=== PATIENT | female | born 1950 | race African-American/Black ===

== ENCOUNTER 2018-03-19 15:44 | Inpatient (IN) | payer MEDICARE, OTHER ==
[~2018-03-19] VITALS: Ht 163.8 cm; Wt 54.9 kg
--- NOTE | ~2018-03-19 | RHP ---
PATIENT: LOUISE MONROE MEDICAL RECORD: [id number] ACCOUNT: [id number] LOCATION:[id number] : 52 ADMISSION DATE: 03/19/18 REHABILITATION HISTORY AND PHYSICAL EXAMINATION POST ADMISSION PHYSICIAN EXAMINATION POST-ADMISSION PHYSICAL EXAMINATION AND HISTORY AND PHYSICAL DATE OF ADMISSION: 03/19/2018 ADMITTING DIAGNOSIS: CVA. 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 She developed aphasia and right-sided weakness. She presented to the ED and was given TPA. 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 MRI of the brain on 03/15 revealed nonhemorrhagic areas of ischemia in the left middle cerebral artery distribution involving the left middle frontal and posterior temporal lobes. Old tiny lacunar infarcts were noted in the right cerebellum and right thalamus. She was admitted to Dr. Wyman. She underwent emergent thrombectomy on 03/14. The patient underwent revascularization and this was achieved with limited ischemic infarction of the left frontal operculum. She was admitted to neuro ICU at [facility] on 03/15 and was transferred to the neuro floor on 03/17. Initial speech therapy evaluation revealed dysphagia, and the patient was placed n.p.o. and placed on a Dobbhoff tube for nutrition. The patient now tolerating p.o. diet. On 03/17, she developed AFib, was placed in the CCU for monitoring. She has been reported to have an elevated troponin. Dr. Watts in cardiology was consulted. She is now on p.o. amiodarone. He stated that he did not see a reason for elevated troponin per clinical course and recommended the patient okay to go to rehab. She remains with dense right hemiparesis and global aphasia. Vitals are stable. She is noted to be in normal sinus rhythm on the monitor. They have requested inpatient rehab before discharge home for safety risk and risk of readmission. Comorbidities in this patient include right-sided hemiparesis, previous small lacunar infarcts in the right cerebellum and right thalamus, aphasia, and hypertension. PAST MEDICAL HISTORY: Significant for hypertension. PAST SURGICAL HISTORY: None. ALLERGIES: LISINOPRIL, NITROGLYCERIN, PROCARDIA, LASIX, AND BENICAR. CURRENT MEDICATIONS: Include Mag-Ox 400 mg daily, folic acid 1 mg daily, amlodipine 2.5 mg daily, Cozaar 100 mg daily, Bumex 0.5 mg daily, Tylenol 1000 mg every 6 hours p.r.n., spironolactone 25 mg b.i.d., atorvastatin 80 mg at bedtime, Eliquis 5 mg b.i.d., and amiodarone 200 mg b.i.d. HABITS: No current alcohol or tobacco use. FAMILY HISTORY: Noncontributory. SOCIAL HISTORY: The patient hopes to return back home and get back to her prior level of functioning. HISTORY AND PHYSICAL [id number] LOUISE MONROE REVIEW OF SYSTEMS: GENERAL: The patient is having some difficulty with dysphagia at this time and problems with aphasia. PHYSICAL EXAMINATION: VITAL SIGNS: Stable. She is afebrile. GENERAL: A thin female, in no acute distress upon exam. HEENT: Normocephalic and atraumatic. Mucosa moist. NECK: Supple. No lymphadenopathy. LUNGS: Clear at this time. HEART: Irregular rate and rhythm. ABDOMEN: Benign. EXTREMITIES: No clubbing, cyanosis or edema. NEUROLOGIC: Consistent with right hemiparesis and noted aphasia. LABORATORY DATA: Her white count is 5.4, H&H of 11.4 and 34.9, her MCV is increased at 101.2, her platelet count is 274. Her sodium is 137, potassium 4.4, BUN and creatinine of 20 and 1.2, and blood sugar is noted to be 88. ASSESSMENT: This 67-year-old female patient admitted with a diagnosis of CVA in the left middle cerebral artery area. The patient has potential to make improvement. We will institute the following multidisciplinary therapies including, but not limited to physical, occupational, respiratory, speech, nutritional services, prosthetics and orthotics. Given her complex medical condition and risks for more complications, rehabilitation services cannot be provided at a low level of care such as a fpc facility. PLAN: 1. Admit to [facility] for intensive inpatient therapy to include the following disciplines: A. Physical therapy to improve gait, all transfer skills and bed mobility to a modified independent level. B. Occupational therapy to improve activities of daily living to a modified independent level. C. Case management to assist with discharge planning and placement options. D. Nutrition to assist with nutritional needs. E. Rehabilitation nursing to assist in monitoring the patient's underlying medical conditions and to assist with any type of bowel or bladder habits. 2. The patient's current medications and medical care will be continued. 3. The patient will be placed on standard fall precautions. 4. The patient's estimated length of stay is approximately 7-10 days. 5. We will discuss this patient during care team staff meeting this week. TRANSINT:[id number] Voice Confirmation ID: [id number] DOCUMENT ID: [id number] FIORDALIZA notes whether there has been none or any medical/functional change since admission: - NO CHANGE SINCE PRESCREEN. FIORDALIZA attests patient continues to be appropriate for IRF: - CONTINUES TO BE APPROPRIATE. HISTORY AND PHYSICAL [id number] LOUISE MONROE SCOTT MD at 2041 CC: [id number] DICTATION DATE: 03/20/1824 LANGUAGE SPECIALIST: 03/20/18 1001 ADM IN [place] [id number] [place] [id number]
[~2018-03-19 15:44] MED LIST: ASPIRIN325 MG PO; AVAPRO150 MG PO; B-12 DOTS500 MCG; BABY ASPIRIN81 MG PO; BAYER CHEWABLE81 MG PO; BUMEX 1 MG TAB1 MG PO; BUMEX2 MG PO; CELLCEPT500 MG PO; FOLIC ACID1 MG PO; K-DUR20 MEQ PO; LOPRESSOR50 MG PO; MAG-OXIDE400 MG PO; METOPROLOL TAR100 M1 PO; METOPROLOL TAR100 MG PO; MICRO-K10 MEQ PO; NORCO 10/325 TA1 TA1; NORCO 10/325 TA1 TA1 PO; PEPCID40 MG PO; PREDNISONE20 MG PO; PREVACID30 MG PO; PRINIVIL20 MG PO
[2018-03-19] MEDS ORDERED: PACERONE200 MG PO (16:38)
[2018-03-19] MEDS ORDERED: LIPITOR80 MG PO (16:38)
[2018-03-19] MEDS ORDERED: ELIQUIS5 MG PO (16:38)
[2018-03-19] MEDS ORDERED: COZAAR100 MG PO (16:39)
[2018-03-19] MEDS ORDERED: NORVASC2.5 MG PO (16:40)
[2018-03-19] MEDS ORDERED: ALDACTONE25 MG PO (16:40)
[2018-03-19 17:06] VITALS: BP 145/71; BMI 20.4
[2018-03-19 19:54] VITALS: BP 136/73
[2018-03-20 07:51] LABS: BASOPHILS 0.6 % (0-2); EOSINOPHILS 1.9 % (0-7); HEMATOCRIT 34.9 % (36.0-48.0); HEMOGLOBIN 11.4 g/dL (12-16); IMMATURE GRANULOCYTES 1.9 % (0-5); LYMPHOCYTES 22.9 % (15-50); MCHC 32.7 g/dL (31.0-37.0); MCV 101.2 fL (80.0-100.0); MEAN PLATELET VOLUME 9.3 fL (7.4-10.4); MONOCYTES 17.9 % (2-11); NEUTROPHILS 54.8 % (40-80); PLATELET COUNT 274 10x3/uL (130-400); RBC 3.45 10x6/uL (4.00-5.40); RDW 16.6 % (11.5-14.5); WBC 5.4 10x3/uL (4.8-10.8)
[2018-03-20 07:54] VITALS: BP 110/68
[2018-03-20 08:14] LABS: ANION GAP 13.6 mmol/L (8-16); CALCIUM 8.6 mg/dL (8.5-10.1); CARBON DIOXIDE 24.8 mmol/L (21.0-32.0); CREATININE - SERUM 1.2 mg/dL (0.6-1.3); POTASSIUM - SERUM 4.4 mmol/L (3.5-5.1)
[2018-03-20 10:12] VITALS: Ht 163.8 cm; Wt 54.9 kg
[2018-03-20 20:01] VITALS: BP 115/59
[2018-03-21 13:23] VITALS: BP 117/62
[2018-03-21 19:55] VITALS: BP 128/60
[2018-03-22 06:05] LABS: BASOPHILS 0.8 % (0-2); EOSINOPHILS 1.7 % (0-7); HEMATOCRIT 34.6 % (36.0-48.0); HEMOGLOBIN 11.1 g/dL (12-16); IMMATURE GRANULOCYTES 1.5 % (0-5); LYMPHOCYTES 28.3 % (15-50); MCH 32.5 pg (26.0-34.0); MCHC 32.1 g/dL (31.0-37.0); MCV 101.2 fL (80.0-100.0); MEAN PLATELET VOLUME 9.6 fL (7.4-10.4); MONOCYTES 17.4 % (2-11); NEUTROPHILS 50.3 % (40-80); PLATELET COUNT 315 10x3/uL (130-400); RBC 3.42 10x6/uL (4.00-5.40); RDW 16.4 % (11.5-14.5); WBC 6.7 10x3/uL (4.8-10.8)
[2018-03-22 06:14] LABS: ANION GAP 15.7 mmol/L (8-16); CALCIUM 8.8 mg/dL (8.5-10.1); CARBON DIOXIDE 23.2 mmol/L (21.0-32.0); CREATININE - SERUM 1.3 mg/dL (0.6-1.3); POTASSIUM - SERUM 4.9 mmol/L (3.5-5.1)
[2018-03-22 08:00] VITALS: BP 109/60
[2018-03-22 19:00] VITALS: BP 107/61
[2018-03-23 08:00] VITALS: BP 109/54
[2018-03-23 19:00] VITALS: BP 151/46
[2018-03-24 06:52] LABS: BASOPHILS 0.3 % (0-2); EOSINOPHILS 1.3 % (0-7); HEMATOCRIT 30.1 % (36.0-48.0); HEMOGLOBIN 9.7 g/dL (12-16); IMMATURE GRANULOCYTES 1.5 % (0-5); LYMPHOCYTES 25.6 % (15-50); MCH 32.2 pg (26.0-34.0); MCHC 32.2 g/dL (31.0-37.0); MEAN PLATELET VOLUME 9.9 fL (7.4-10.4); MONOCYTES 18.5 % (2-11); NEUTROPHILS 52.8 % (40-80); PLATELET COUNT 351 10x3/uL (130-400); RBC 3.01 10x6/uL (4.00-5.40); RDW 16.3 % (11.5-14.5); WBC 6.8 10x3/uL (4.8-10.8)
[2018-03-24 06:57] LABS: ANION GAP 9.6 mmol/L (8-16); CALCIUM 9.5 mg/dL (8.5-10.1); CARBON DIOXIDE 29.3 mmol/L (21.0-32.0); CREATININE - SERUM 1.3 mg/dL (0.6-1.3); POTASSIUM - SERUM 4.9 mmol/L (3.5-5.1)
[2018-03-24 08:00] VITALS: BP 115/56
[2018-03-24 19:00] VITALS: BP 132/59
[2018-03-25 08:15] VITALS: BP 108/51
[2018-03-25 19:58] VITALS: BP 122/68
[2018-03-26 06:40] LABS: HEMATOCRIT 30.6 % (36.0-48.0); HEMOGLOBIN 10.2 g/dL (12-16); LYMPHOCYTES 34.7 % (15-50); MCHC 33.3 g/dL (31.0-37.0); MEAN PLATELET VOLUME 9.5 fL (7.4-10.4); NEUTROPHILS 45.4 % (40-80); PLATELET COUNT 351 10x3/uL (130-400); RBC 3.09 10x6/uL (4.00-5.40); RDW 16.6 % (11.5-14.5)
[2018-03-26 06:45] LABS: ANION GAP 9.3 mmol/L (8-16); CALCIUM 9.5 mg/dL (8.5-10.1); CARBON DIOXIDE 26.3 mmol/L (21.0-32.0); POTASSIUM - SERUM 5.6 mmol/L (3.5-5.1)
[2018-03-26 06:54] LABS: CREATININE - SERUM 1.7 mg/dL (0.6-1.3)
[2018-03-26 14:50] LABS: CKMB 1.5 U/L (0.0-3.6); CREATINE KINASE 67 UL (21-215)
[2018-03-26 19:00] VITALS: BP 120/67
[2018-03-26 20:30] LABS: CKMB 1.7 U/L (0.0-3.6); CREATINE KINASE 65 UL (21-215)
[2018-03-26 20:42] LABS: TROPONIN-I 0.169 ng/mL (0.000-0.060)
[2018-03-27 02:46] LABS: CALC OSMOLALITY 278 mosm/kg (275-300); CALCIUM 9.2 mg/dL (8.5-10.1); CHLORIDE - SERUM 98 mmol/L (98-107); CKMB 2.4 U/L (0.0-3.6); CREATINE KINASE 66 UL (21-215); CREATININE - SERUM 1.6 mg/dL (0.6-1.3); GLUCOSE 89 mg/dL (74-106); POTASSIUM - SERUM 4.9 mmol/L (3.5-5.1); SODIUM 129 mmol/L (136-145); UREA NITROGEN 70 mg/dL (7-18); eGFR NON AFRICAN AMERICAN 34 mL/min (90-120)
[2018-03-27 02:49] LABS: TROPONIN-I 0.192 ng/mL (0.000-0.060)
[2018-03-27 09:14] VITALS: BP 102/59
[2018-03-27 20:30] VITALS: BP 103/55
[2018-03-28 08:45] VITALS: BP 98/58
[2018-03-28 19:55] VITALS: BP 111/66
[2018-03-29] VITALS (8 sets, daily range): BP systolic 91–119; BP diastolic 50–63
[2018-03-29 06:30] LABS: BASOPHILS 0.5 % (0-2); EOSINOPHILS 0.8 % (0-7); HEMATOCRIT 22.8 % (36.0-48.0); IMMATURE GRANULOCYTES 1.3 % (0-5); LYMPHOCYTES 34.6 % (15-50); MCH 31.6 pg (26.0-34.0); MCHC 31.6 g/dL (31.0-37.0); MEAN PLATELET VOLUME 9.5 fL (7.4-10.4); MONOCYTES 10.9 % (2-11); NEUTROPHILS 51.9 % (40-80); PLATELET COUNT 338 10x3/uL (130-400); RBC 2.28 10x6/uL (4.00-5.40); RDW 16.3 % (11.5-14.5); WBC 8.4 10x3/uL (4.8-10.8)
[2018-03-29 06:35] LABS: HEMOGLOBIN 7.2 g/dL (12-16)
[2018-03-29 07:10] LABS: ANION GAP 14.5 mmol/L (8-16); CALCIUM 9.1 mg/dL (8.5-10.1); CARBON DIOXIDE 25.6 mmol/L (21.0-32.0); CREATININE - SERUM 1.8 mg/dL (0.6-1.3); POTASSIUM - SERUM 5.1 mmol/L (3.5-5.1)
[2018-03-30 08:00] VITALS: BP 113/60
[2018-03-30 20:00] VITALS: BP 115/59
[2018-03-31 06:59] LABS: BASOPHILS 0.5 % (0-2); EOSINOPHILS 1.3 % (0-7); HEMATOCRIT 27.1 % (36.0-48.0); IMMATURE GRANULOCYTES 1.4 % (0-5); LYMPHOCYTES 21.9 % (15-50); MCH 30.3 pg (26.0-34.0); MCHC 32.8 g/dL (31.0-37.0); MEAN PLATELET VOLUME 9.6 fL (7.4-10.4); MONOCYTES 10.8 % (2-11); NEUTROPHILS 64.1 % (40-80); RDW 18.2 % (11.5-14.5); WBC 8.6 10x3/uL (4.8-10.8)
[2018-03-31 07:04] LABS: HEMOGLOBIN 8.9 g/dL (12-16); MCV 92.2 fL (80.0-100.0); PLATELET COUNT 264 10x3/uL (130-400); RBC 2.94 10x6/uL (4.00-5.40)
[2018-03-31 07:25] LABS: ANION GAP 8.8 mmol/L (8-16); CALCIUM 9.1 mg/dL (8.5-10.1); CARBON DIOXIDE 28.4 mmol/L (21.0-32.0); CREATININE - SERUM 1.7 mg/dL (0.6-1.3); POTASSIUM - SERUM 5.2 mmol/L (3.5-5.1)
[2018-03-31 08:00] VITALS: BP 106/55
[2018-03-31 19:00] VITALS: BP 124/61
[2018-04-01 08:00] VITALS: BP 107/57
[2018-04-01 19:00] VITALS: BP 137/55
[2018-04-02 05:13] LABS: BASOPHILS 0.4 % (0-2); EOSINOPHILS 2.6 % (0-7); HEMOGLOBIN 8.3 g/dL (12-16); IMMATURE GRANULOCYTES 1.1 % (0-5); LYMPHOCYTES 28.6 % (15-50); MCH 30.4 pg (26.0-34.0); MCHC 31.9 g/dL (31.0-37.0); MEAN PLATELET VOLUME 9.4 fL (7.4-10.4); MONOCYTES 16.7 % (2-11); NEUTROPHILS 50.6 % (40-80); PLATELET COUNT 276 10x3/uL (130-400); RBC 2.73 10x6/uL (4.00-5.40); RDW 17.8 % (11.5-14.5); WBC 7.2 10x3/uL (4.8-10.8)
[2018-04-02 05:20] LABS: MCV 95.2 fL (80.0-100.0)
[2018-04-02 05:30] LABS: ANION GAP 9.9 mmol/L (8-16); CALCIUM 8.5 mg/dL (8.5-10.1); CARBON DIOXIDE 28.8 mmol/L (21.0-32.0); CREATININE - SERUM 2.1 mg/dL (0.6-1.3); POTASSIUM - SERUM 5.7 mmol/L (3.5-5.1)
[2018-04-02 08:00] VITALS: BP 113/60
[2018-04-02] MEDS ORDERED: ELIQUIS2.5 MG PO (09:02)
== END 2018-04-02 11:07 | disposition home health service (06) | DRG 57 ==
LOC: D.REHAB 15:44
PROVIDERS: Emergency Medicine
DX: I69.30 Unspecified sequelae of cerebral infarction (principal); G81.91 Hemiplegia, unspecified affecting right dominant side; R47.01 Aphasia; I10 Essential (primary) hypertension; I48.91 Unspecified atrial fibrillation; I35.0 Nonrheumatic aortic (valve) stenosis

== ENCOUNTER → 2018-04-28 13:03 | Outpatient (CLI) | payer MEDICARE, OTHER ==
[2018-03-20 10:12] VITALS: BMI 20.4
[~2018-04-28 13:03] MED LIST changes: +ALDACTONE25 MG PO; +COZAAR100 MG PO; +ELIQUIS2.5 MG PO; +ELIQUIS5 MG PO; +LIPITOR80 MG PO; +NORVASC2.5 MG PO; +PACERONE200 MG PO
[2018-04-28 13:56] LABS: BASOPHILS 0.2 % (0-2); EOSINOPHILS 1.1 % (0-7); HEMATOCRIT 35.5 % (36.0-48.0); HEMOGLOBIN 11.2 g/dL (12-16); IMMATURE GRANULOCYTES 0.5 % (0-5); MCH 30.4 pg (26.0-34.0); MCHC 31.5 g/dL (31.0-37.0); MCV 96.2 fL (80.0-100.0); MEAN PLATELET VOLUME 9.8 fL (7.4-10.4); MONOCYTES 10.1 % (2-11); NEUTROPHILS 72.1 % (40-80); RBC 3.69 10x6/uL (4.00-5.40); RDW 19.5 % (11.5-14.5); WBC 11.1 10x3/uL (4.8-10.8)
[2018-04-28 13:58] LABS: PLATELET COUNT 333 10x3/uL (130-400)
== END | disposition home or self-care (01) ==
LOC: D.LABREF 13:03
PROVIDERS: Internal Medicine Hematology & Oncology
DX: D55.0 Anemia due to glucose-6-phosphate dehydrogenase [G6PD] deficiency (principal)

== ENCOUNTER → 2018-05-06 14:35 | Outpatient (CLI) | payer MEDICARE, OTHER ==
[2018-03-20 10:12] VITALS: BMI 20.4
[2018-05-06 16:35] LABS: BASOPHILS 0.3 % (0-2); EOSINOPHILS 0.4 % (0-7); HEMATOCRIT 39.5 % (36.0-48.0); HEMOGLOBIN 12.3 g/dL (12-16); IMMATURE GRANULOCYTES 1.2 % (0-5); LYMPHOCYTES 13.5 % (15-50); MCH 30.5 pg (26.0-34.0); MCHC 31.1 g/dL (31.0-37.0); MEAN PLATELET VOLUME 10.1 fL (7.4-10.4); MONOCYTES 10.3 % (2-11); NEUTROPHILS 74.3 % (40-80); RBC 4.03 10x6/uL (4.00-5.40); WBC 7.8 10x3/uL (4.8-10.8)
[2018-05-06 16:38] LABS: PLATELET COUNT 260 10x3/uL (130-400)
== END | disposition home or self-care (01) ==
LOC: D.LABREF 14:35
PROVIDERS: Internal Medicine Hematology & Oncology
DX: D55.0 Anemia due to glucose-6-phosphate dehydrogenase [G6PD] deficiency (principal)

== ENCOUNTER → 2018-05-13 20:36 | Outpatient (CLI) | payer MEDICARE, OTHER ==
[2018-03-20 10:12] VITALS: BMI 20.4
[2018-05-13 21:51] LABS: BASOPHILS 0.3 % (0-2); EOSINOPHILS 0.6 % (0-7); HEMATOCRIT 38.9 % (36.0-48.0); HEMOGLOBIN 12.3 g/dL (12-16); IMMATURE GRANULOCYTES 0.8 % (0-5); LYMPHOCYTES 13.4 % (15-50); MCHC 31.6 g/dL (31.0-37.0); MEAN PLATELET VOLUME 10.3 fL (7.4-10.4); MONOCYTES 7.6 % (2-11); NEUTROPHILS 77.3 % (40-80); PLATELET COUNT 243 10x3/uL (130-400); RBC 3.97 10x6/uL (4.00-5.40); RDW 18.2 % (11.5-14.5); WBC 7.1 10x3/uL (4.8-10.8)
== END | disposition home or self-care (01) ==
LOC: D.LABREF 20:36
PROVIDERS: Internal Medicine Hematology & Oncology
DX: D55.0 Anemia due to glucose-6-phosphate dehydrogenase [G6PD] deficiency (principal)

== ENCOUNTER → 2018-05-27 11:57 | Outpatient (CLI) | payer MEDICARE, OTHER ==
[2018-03-20 10:12] VITALS: BMI 20.4
[2018-05-27 16:18] LABS: BASOPHILS 0.6 % (0-2); HEMATOCRIT 36.9 % (36.0-48.0); HEMOGLOBIN 11.8 g/dL (12-16); IMMATURE GRANULOCYTES 0.4 % (0-5); LYMPHOCYTES 29.9 % (15-50); MCH 30.9 pg (26.0-34.0); MCV 96.6 fL (80.0-100.0); MEAN PLATELET VOLUME 10.5 fL (7.4-10.4); MONOCYTES 16.7 % (2-11); NEUTROPHILS 51.4 % (40-80); PLATELET COUNT 238 10x3/uL (130-400); RBC 3.82 10x6/uL (4.00-5.40); RDW 17.5 % (11.5-14.5)
== END | disposition home or self-care (01) ==
LOC: D.LABREF 11:57
PROVIDERS: Internal Medicine Hematology & Oncology
DX: G81.90 Hemiplegia, unspecified affecting unspecified side (principal); R13.10 Dysphagia, unspecified

== ENCOUNTER → 2018-06-02 18:54 | Outpatient (CLI) | payer MEDICARE, OTHER ==
[2018-03-20 10:12] VITALS: BMI 20.4
[2018-06-02 19:35] LABS: BASOPHILS 0.4 % (0-2); EOSINOPHILS 0.1 % (0-7); HEMATOCRIT 37.7 % (36.0-48.0); HEMOGLOBIN 12.2 g/dL (12-16); IMMATURE GRANULOCYTES 0.4 % (0-5); LYMPHOCYTES 21.1 % (15-50); MCHC 32.4 g/dL (31.0-37.0); MCV 95.9 fL (80.0-100.0); MEAN PLATELET VOLUME 10.7 fL (7.4-10.4); MONOCYTES 7.7 % (2-11); NEUTROPHILS 70.3 % (40-80); PLATELET COUNT 235 10x3/uL (130-400); RBC 3.93 10x6/uL (4.00-5.40); RDW 17.2 % (11.5-14.5); WBC 6.9 10x3/uL (4.8-10.8)
== END | disposition home or self-care (01) ==
LOC: D.LABREF 18:54
PROVIDERS: Internal Medicine Hematology & Oncology
DX: D55.0 Anemia due to glucose-6-phosphate dehydrogenase [G6PD] deficiency (principal)

== ENCOUNTER → 2018-06-23 15:54 | Outpatient (CLI) | payer MEDICARE, OTHER ==
[2018-03-20 10:12] VITALS: BMI 20.4
[2018-06-23 17:24] LABS: BASOPHILS 0.3 % (0-2); EOSINOPHILS 1.3 % (0-7); HEMOGLOBIN 10.2 g/dL (12-16); IMMATURE GRANULOCYTES 1.9 % (0-5); LYMPHOCYTES 11.7 % (15-50); MCH 31.4 pg (26.0-34.0); MCHC 31.9 g/dL (31.0-37.0); MCV 98.5 fL (80.0-100.0); MEAN PLATELET VOLUME 9.8 fL (7.4-10.4); MONOCYTES 8.5 % (2-11); NEUTROPHILS 76.3 % (40-80); RBC 3.25 10x6/uL (4.00-5.40); WBC 9.6 10x3/uL (4.8-10.8)
[2018-06-23 17:25] LABS: PLATELET COUNT 325 10x3/uL (130-400)
== END | disposition home or self-care (01) ==
LOC: D.LABREF 15:54
PROVIDERS: Internal Medicine Hematology & Oncology
DX: I63.9 Cerebral infarction, unspecified (principal); N18.9 Chronic kidney disease, unspecified

== ENCOUNTER 2018-09-27 08:13 | Outpatient (CLI) | payer OTHER ==
[~2018-09-27] VITALS: Ht 163.8 cm; Wt 56.9 kg
[2018-09-27 08:43] LABS: BASOPHILS 0.3 % (0-2); EOSINOPHILS 1.2 % (0-7); HEMATOCRIT 31.5 % (36.0-48.0); IMMATURE GRANULOCYTES 0.9 % (0-5); LYMPHOCYTES 44.4 % (15-50); MCH 32.9 pg (26.0-34.0); MCHC 31.7 g/dL (31.0-37.0); MCV 103.6 fL (80.0-100.0); MEAN PLATELET VOLUME 9.6 fL (7.4-10.4); MONOCYTES 12.6 % (2-11); NEUTROPHILS 40.6 % (40-80); PLATELET COUNT 292 10x3/uL (130-400); RBC 3.04 10x6/uL (4.00-5.40); RDW 15.3 % (11.5-14.5); WBC 6.8 10x3/uL (4.8-10.8)
[2018-09-27 08:50] LABS: APTT 26.5 SECONDS (22.8-39.4); INR 1.07 (0.85-1.17); PROTIME 13.4 SECONDS (11.6-15.0)
[2018-09-27 08:51] LABS: ANION GAP 11.5 mmol/L (8-16); CREATININE - SERUM 2.3 mg/dL (0.6-1.3); POTASSIUM - SERUM 4.5 mmol/L (3.5-5.1)
[2018-09-27] MEDS ORDERED: HYDROCO/APAP TAB 10- PO (09:28)
[2018-09-27] MEDS ORDERED: PREDNISONE10 MG PO (09:29)
[2018-09-27] MEDS ORDERED: PROCRIT/EP40000 UNIT SQ (09:30)
[2018-09-27] MEDS ORDERED: OMEPRAZOLE40 MG PO (09:32)
[2018-09-27 09:40] VITALS: BP 152/66; BMI 22.0
[2018-09-27] MEDS ORDERED: ASPIRIN325 MG PO (09:44)
--- NOTE | 2018-09-27 09:49 | NUR ---
IV STARTED WITH 20G ANTIOCATH IN LEFT HAND, ARIE WELL
--- NOTE | 2018-09-27 14:15 | NUR ---
1355 SEE POST PROCEDURE CHECKLIST FOR VITAL SIGN TRENDS. PT IS LAYING ON LEFT SIDE AND IS TO LAY ON LEFT SIDE FOR 2 MORE HOURS, EXPLAINED TO PT. FAMILY AT SIDE. 1400 WARM BLANKET SUPPLIED, RENAL ADA DIET ORDERED. 1415 ROUNDS BY [facility] NURSE.
--- NOTE | 2018-09-27 15:02 | NUR ---
1455 LAB HERE TO DRAW CBC.
--- NOTE | 2018-09-27 15:07 | NUR ---
1505 INDRA GOODSON APN NOTIFIED OF PT'S TO BE KEEP OVERNIGHT.
[2018-09-27 15:10] LABS: BASOPHILS 0.5 % (0-2); HEMATOCRIT 28.4 % (36.0-48.0); HEMOGLOBIN 8.9 g/dL (12-16); IMMATURE GRANULOCYTES 0.9 % (0-5); LYMPHOCYTES 33.2 % (15-50); MCH 32.7 pg (26.0-34.0); MCHC 31.3 g/dL (31.0-37.0); MCV 104.4 fL (80.0-100.0); MEAN PLATELET VOLUME 9.6 fL (7.4-10.4); NEUTROPHILS 50.4 % (40-80); PLATELET COUNT 240 10x3/uL (130-400); RBC 2.72 10x6/uL (4.00-5.40); RDW 15.2 % (11.5-14.5); WBC 7.9 10x3/uL (4.8-10.8)
--- NOTE | 2018-09-27 18:13 | NUR ---
1745 REPORT PHONED TO MELITA
[2018-09-27 18:57] LABS: BASOPHILS 0.3 % (0-2); EOSINOPHILS 1.4 % (0-7); HEMATOCRIT 28.1 % (36.0-48.0); HEMOGLOBIN 8.9 g/dL (12-16); LYMPHOCYTES 34.2 % (15-50); MCH 33.1 pg (26.0-34.0); MCHC 31.7 g/dL (31.0-37.0); MCV 104.5 fL (80.0-100.0); MEAN PLATELET VOLUME 9.5 fL (7.4-10.4); MONOCYTES 15.2 % (2-11); NEUTROPHILS 47.9 % (40-80); PLATELET COUNT 246 10x3/uL (130-400); RBC 2.69 10x6/uL (4.00-5.40); RDW 15.4 % (11.5-14.5); WBC 6.3 10x3/uL (4.8-10.8)
--- NOTE | 2018-09-27 19:25 | NUR ---
PT RESTING IN BED WITH EYES OPEN. ALERT AND ORIENTED X 3. DENIES ANY PAIN OR DISCOMFORT AT THIS TIME. PT IS VERY FRIENDLY AND TALKATIVE. 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 DRESSING TO RIGHT SIDE FROM RENAL BIOPSY TODAY IS CDI. NO DRAINAGE NOTED. 1 UNIT OF PLATELETS HUNG AT THIS TIME. VSS. NO ADVERSE REACTION NOTED. TELEMETRY UNIT IS ON AND INTACT. SR'S ARE UP X 2 IN BED. CALL LIGHT AND BEDSIDE TABLE ARE WITHIN EASY REACH.
--- NOTE | 2018-09-27 23:41 | NUR ---
PT RESTING IN BED WITH EYES CLOSED. AWOKE EASILY TO VERBAL STIMULI. SHE STATES SHE HAS VOIDED TWICE WITHOUT DIFFICULTY. 500CC CLEAR YELLOW URINE NOTED IN HAT.
[2018-09-28] VITALS: BP 152/55
--- NOTE | 2018-09-28 01:19 | NUR ---
RESTING IN BED WITH EYES CLOSED.
--- NOTE | 2018-09-28 03:19 | NUR ---
LYING IN BED, RESPIRATIONS EVEN AND UNLABORED. CALL LIGHT IN REACH, WILL CONTINUE WITH PLAN OF CARE.
[2018-09-28 04:00] VITALS: BP 137/53
[2018-09-28 04:40] VITALS: Ht 163.8 cm; Wt 56.9 kg
--- NOTE | 2018-09-28 05:39 | NUR ---
PT RESTING IN BED WITH EYES CLOSED. NO DISTRESS NOTED. UP TO BATHROOM PRN. URINE IS CLEAR YELLOW.
--- NOTE | 2018-09-28 07:43 | NUR ---
JESSE VENTURA- PT RESTING COMFORTABLY IN BED, A/OX4 RESP EVEN AND NONLABORED ON RA. LT HAND IV SL. DRESSING TO LT FLANK AREA CDI. PT STATED THAT SHE ALREADY TOOK HER HOME MEDICATIONS. PT DENIES ANY NEEDS AT THIS TIME. CALL LIGHT IN REACH, NAD NOTED, WILL CONTINUE PLAN OF CARE.
[2018-09-28 08:45] VITALS: BP 146/58
--- NOTE | 2018-09-28 10:19 | NUR ---
PROVIDED VERBAL AND WRITTEN DISCHARGE TEACHING TO PT WHO VERBALIZED UNDERSTANDING REGARDING TEACHING. D/C LT HAND IV WITH CATHETER TIP INTACT. PT WILL NOTIFY THIS NURSE WHEN READY FOR WHEELCHAIR.
--- NOTE | 2018-09-28 10:51 | NUR ---
PT LEFT UNIT VIA WHEELCHAIR, WITH ALL BELONGINGS, ACCOMPANIED BY FAMILY, NAD NOTED.
[2018-09-29] MEDS ORDERED: MACROBID100 MG PO (01:32)
== END 2018-09-28 10:52 | disposition home or self-care (01) ==
LOC: D.SP 08:13 → D.RAD 10:00 → D.SP 10:00 → D.SDCHOLD 16:24 → D.M2 18:15 → D.SP 09-28 10:52
PROVIDERS: General Practice; Internal Medicine Nephrology
DX: N26.9 Renal sclerosis, unspecified (principal); G62.9 Polyneuropathy, unspecified; M32.9 Systemic lupus erythematosus, unspecified; Z01.812 Encounter for preprocedural laboratory examination

== ENCOUNTER 2018-09-28 23:08 | Emergency (ER) | payer OTHER ==
[~2018-09-28] VITALS: Ht 163.8 cm; Wt 57.3 kg
[~2018-09-28 23:08] MED LIST changes: +HYDROCO/APAP TAB 10- PO; +OMEPRAZOLE40 MG PO; +PREDNISONE10 MG PO; +PROCRIT/EP40000 UNIT SQ
[2018-09-28 23:14] VITALS: Ht 163.8 cm; Wt 57.3 kg
[2018-09-28 23:46] LABS: APPEARANCE CLOUDY (CLEAR); BACTERIA FEW /hpf (NONE SEEN); BILIRUBIN NEGATIVE (NEGATIVE); COLOR RED (YELLOW); EPITHELIAL CELLS 0-5 /hpf (0-5); GLUCOSE NEGATIVE (NEGATIVE); KETONE NEGATIVE (NEGATIVE); NITRITE POSITIVE (NEGATIVE); PROTEIN 3+ mg/dL (NEGATIVE); RED CELLS - URINE >50 /hpf (0-5); UROBILINOGEN NORMAL (NORMAL); WHITE CELLS - URINE 0-5 /hpf (0-5)
[2018-09-29 00:36] LABS: ALBUMIN 3.5 g/dL (3.4-5.0); ANION GAP 14.7 mmol/L (8-16); BILIRUBIN - TOTAL 0.47 mg/dL (0.2-1.3); CALCIUM 8.4 mg/dL (8.5-10.1); CARBON DIOXIDE 24.6 mmol/L (21.0-32.0); CREATININE - SERUM 1.8 mg/dL (0.6-1.3); POTASSIUM - SERUM 4.3 mmol/L (3.5-5.1); PROTEIN - SERUM 7.6 g/dL (6.4-8.2)
[2018-09-29 00:42] LABS: HEMATOCRIT 27.8 % (36.0-48.0); HEMOGLOBIN 9.1 g/dL (12-16); LYMPHOCYTES 26.1 % (15-50); MCH 33.7 pg (26.0-34.0); MCHC 32.7 g/dL (31.0-37.0); MEAN PLATELET VOLUME 9.3 fL (7.4-10.4); NEUTROPHILS 55.8 % (40-80); RDW 15.6 % (11.5-14.5)
[2018-09-29 00:43] LABS: PLATELET COUNT 312 10x3/uL (130-400)
[2018-09-29 01:20] LABS: APTT 30.2 SECONDS (22.8-39.4); INR 1.09 (0.85-1.17); PROTIME 13.6 SECONDS (11.6-15.0)
[2018-09-29] MEDS ORDERED: MACROBID100 MG PO (01:32)
[2018-09-29 01:58] VITALS: BP 182/71
== END 2018-09-29 01:59 | disposition home or self-care (01) ==
LOC: D.ER 23:08
PROVIDERS: Family Medicine
DX: R31.9 Hematuria, unspecified (principal); D64.9 Anemia, unspecified; I12.9 Hypertensive chronic kidney disease with stage 1 through stage 4 chronic kidney disease, or unspecified chronic kidney disease; N18.9 Chronic kidney disease, unspecified; M32.9 Systemic lupus erythematosus, unspecified; Z98.890 Other specified postprocedural states; F17.200 Nicotine dependence, unspecified, uncomplicated

== ENCOUNTER → 2019-07-27 14:02 | Outpatient (CLI) | payer OTHER ==
[2018-09-28 23:14] VITALS: BMI 21.3
[~2019-07-27 14:02] MED LIST changes: +MACROBID100 MG PO
== END | disposition home or self-care (01) ==
LOC: D.HCCECHO 14:00
PROVIDERS: ATTEND Internal Medicine Cardiovascular Disease
DX: I05.9 Rheumatic mitral valve disease, unspecified (principal)

== ENCOUNTER → 2020-03-28 14:49 | Outpatient (CLI) | payer OTHER ==
[2018-09-28 23:14] VITALS: BMI 21.3
[2020-03-28 15:47] LABS: HEMATOCRIT 37.9 % (36.0-48.0); HEMOGLOBIN 11.5 g/dL (12-16); LYMPHOCYTES 17.1 % (15-50); MCH 30.2 pg (26.0-34.0); MCHC 30.3 g/dL (31.0-37.0); MCV 99.5 fL (80.0-100.0); MEAN PLATELET VOLUME 9.5 fL (7.4-10.4); NEUTROPHILS 69.5 % (40-80); PLATELET COUNT 283 10x3/uL (130-400); RBC 3.81 10x6/uL (4.00-5.40); RDW 18.8 % (11.5-14.5); WBC 6.1 10x3/uL (4.8-10.8)
[2020-03-28 15:54] LABS: ALBUMIN 3.3 g/dL (3.4-5.0); ANION GAP 7.9 mmol/L (8-16); BILIRUBIN - TOTAL 0.42 mg/dL (0.2-1.3); CALCIUM 8.5 mg/dL (8.5-10.1); CARBON DIOXIDE 28.6 mmol/L (21.0-32.0); CREATININE - SERUM 1.5 mg/dL (0.6-1.3); POTASSIUM - SERUM 4.5 mmol/L (3.5-5.1); PROTEIN - SERUM 6.9 g/dL (6.4-8.2)
== END | disposition home or self-care (01) ==
LOC: D.LAB 14:49
PROVIDERS: ATTEND Family Medicine
DX: R56.9 Unspecified convulsions (principal); I63.50 Cerebral infarction due to unspecified occlusion or stenosis of unspecified cerebral artery; I12.9 Hypertensive chronic kidney disease with stage 1 through stage 4 chronic kidney disease, or unspecified chronic kidney disease; N18.3 Chronic kidney disease, stage 3 (moderate); I48.0 Paroxysmal atrial fibrillation

== ENCOUNTER → 2020-04-20 08:39 | Outpatient (CLI) | payer OTHER ==
[2018-09-28 23:14] VITALS: BMI 21.3
== END | disposition home or self-care (01) ==
LOC: D.LAB 08:39
PROVIDERS: ATTEND Family Medicine
DX: G40.909 Epilepsy, unspecified, not intractable, without status epilepticus (principal); R79.89 Other specified abnormal findings of blood chemistry

== ENCOUNTER → 2020-05-01 13:52 | Outpatient (CLI) | payer OTHER ==
[2018-09-28 23:14] VITALS: BMI 21.3
== END | disposition home or self-care (01) ==
LOC: D.LAB 13:52
PROVIDERS: ATTEND Family Medicine
DX: R56.9 Unspecified convulsions (principal)

== ENCOUNTER → 2020-12-21 14:21 | Outpatient (CLI) | payer OTHER ==
[2018-09-28 23:14] VITALS: BMI 21.3
[2020-12-21 15:34] LABS: BILIRUBIN NEGATIVE (NEGATIVE); KETONE NEGATIVE (NEGATIVE); NITRITE POSITIVE (NEGATIVE); UROBILINOGEN NORMAL mg/dL (< 2)
[2020-12-21 15:35] LABS: BACTERIA MANY HPF (NONE SEEN); SQUAMOUS EPITHELIAL 0-5 HPF (0-4); WHITE CELLS - URINE >50 HPF (0-4)
== END | disposition home or self-care (01) ==
LOC: D.LAB 14:21
PROVIDERS: ATTEND Family Medicine
DX: R30.0 Dysuria (principal)

== ENCOUNTER 2021-01-16 18:00 | Outpatient (CLI) | payer OTHER ==
[2018-09-28 23:14] VITALS: BMI 21.3
== END 2021-01-16 23:59 | disposition home or self-care (01) ==
LOC: D.MAMMO 18:00
PROVIDERS: ATTEND Family Medicine
DX: Z12.31 Encounter for screening mammogram for malignant neoplasm of breast (principal)

== ENCOUNTER → 2021-01-21 13:20 | Outpatient (CLI) | payer OTHER ==
[2018-09-28 23:14] VITALS: BMI 21.3
== END | disposition home or self-care (01) ==
LOC: D.US 13:20
PROVIDERS: ATTEND Family Medicine
DX: R92.8 Other abnormal and inconclusive findings on diagnostic imaging of breast (principal)

== ENCOUNTER → 2021-02-04 13:13 | Outpatient (CLI) | payer OTHER ==
[2018-09-28 23:14] VITALS: BMI 21.3
== END | disposition home or self-care (01) ==
LOC: D.US 01-28 13:00
PROVIDERS: ATTEND Family Medicine
DX: R92.8 Other abnormal and inconclusive findings on diagnostic imaging of breast (principal)

== ENCOUNTER → 2021-02-20 12:30 | Outpatient (CLI) | payer OTHER ==
[2018-09-28 23:14] VITALS: BMI 21.3
== END | disposition home or self-care (01) ==
LOC: D.US 12:30
PROVIDERS: ATTEND Radiology Vascular & Interventional Radiology
DX: N64.4 Mastodynia (principal)